=== PATIENT | female | born 1995 | race Caucasian/White ===

== ENCOUNTER 2022-05-05 08:26 | Outpatient (CLI) | payer OTHER, SELFPAY ==
[2022-05-05 10:12] LABS: Vitamin D 25 Hydroxy* 83 ng/mL (30-80)
[2022-05-05 10:30] LABS: Ferritin* 23.8 ng/mL (6.24-137.0)
[2022-05-05 10:45] LABS: Vitamin B12* 525 pg/mL (243-894)
== END 2022-05-05 08:27 | disposition home or self-care (01) ==
LOC: NFLDREF 08:26
PROVIDERS: PCP Family Medicine; Visit Provider Family Medicine
DX: E53.8 Deficiency of other specified B group vitamins (principal); R53.83 Other fatigue; E55.9 Vitamin D deficiency, unspecified
CPT/HCPCS: 82306; 82607; 82728

== ENCOUNTER 2022-10-01 12:15 | Emergency (ER) | payer OTHER, SELFPAY ==
[2022-10-01 12:24] VITALS: BP 106/59; PULSE 129; RESP 18; TEMP 36.8; O2SAT 96; BMI 27.4
--- NOTE | 2022-10-01 13:45 | ED.GENADULT ---
HPI - General Adult General Time Seen by Provider: 13:46 Date Seen: 10/01/22 Chief complaint: Nausea/Vomiting Stated complaint: vomiting Time Seen by Provider: 10/01/22 13:45 Source: patient and RN notes reviewed Mode of arrival: ambulatory Limitations: no limitations History of Present Illness HPI narrative: Rosi is a 27-year-old female coming in with nausea vomiting diarrhea. She awoke overnight with nausea vomiting and sharp abdominal pain. This happened around 2:00 a.m.. She drinks water bucket sharp stomach pain any time she attempts to. She started with diarrhea around 7:00 a.m. this morning, has had a few bouts. She has never had any abdominal surgery before, no bowel obstruction. She does have chronic GERD and does take omeprazole. She is currently menstruating. She has had a workup for abdominal pain at [place] before per report. She states they felt it was probably her GERD. She has not noted fevers per se but has felt hot and sweaty overnight. She had pizza in a bag salad last night, her brother had the same thing and he is not ill. No other known ill contacts, no travel. Related Data Home Medications Medication Instructions Recorded Confirmed cyanocobalamin (vitamin B-12) 500 500 mcg PO DAILY 03/24/22 07/09/22 mcg tablet melatonin 5 mg capsule 5 mg PO .Bedtime as needed PRN 03/24/22 07/09/22 omeprazole 20 mg capsule,delayed 20 mg PO .Daily as needed PRN 03/24/22 07/09/22 release cholecalciferol (vitamin D3) 125 5,000 unit PO DAILY 07/09/22 07/09/22 mcg (5,000 unit) tablet Previous Rx's Medication Instructions Recorded fluconazole 150 mg tablet 150 mg PO Q3D 2 doses #2 tabs 08/23/22 Allergies Allergy/AdvReac Type Severity Reaction Status Date / Time No Known Allergies Allergy Verified 10/01/22 14:18 Review of Systems Status of ROS: Reports: 10 or more systems reviewed and unremarkable except as noted in History and below [facility] Medical History Anxiety Gastroesophageal reflux disease Vitamin D deficiency (2018) Surgical History No history of previous surgery Family History Maternal Grandfather Diabetes Maternal Grandmother Heart disease Stroke Diabetes Paternal Grandfather Colon cancer Uncle Diabetes Other Family history of stroke Social History Narrative: Exercises regularly- 2 h walks with dog Thundra, also trail runs, weights Non-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, 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, 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, 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, no kids Smoking Status: Never smoker How often do you have a drink containing alcohol: monthly or less AUDIT-C Alcohol total score: 1 Non-prescribed substance use: denies use Little interest or pleasure in doing things: not at all Feeling down, depressed, or hopeless: several days service: No Exam Const: Vital Signs, click to edit/add: Vital Signs - 24 hr 10/01/22 12:24 10/01/22 14:01 10/01/22 15:50 Temperature 98.2 F Pulse Rate 109 H Pulse Rate [Right Pulse Oximeter] 129 H Respiratory Rate 18 Blood Pressure [Ri ght Upper Arm] 106/59 L Pulse Oximetry 96 99 100 Oxygen Delivery Me thod Room Air 10/01/22 15:56 Temperature Pulse Rate Pulse Rate [Right Pulse Oximeter] 111 H Respiratory Rate 20 Blood Pressure [Ri ght Upper Arm] 117/73 Pulse Oximetry 99 Oxygen Delivery Me thod Room Air Documenting provider has reviewed patient's vital signs: yes Common normals: no apparent distress, average body habitus, oriented x3, no limitations, healthy appearing and alert General appearance: cooperative, comfortable, well kempt and well developed HENMT: Common normals: normocephalic, head/scalp atraumatic, hearing grossly normal bilaterally, external nose normal and nasal mucous membranes and turbinates normal Head and scalp: normocephalic and atraumatic Nose: external nose normal and nasal mucous membranes and turbinates normal Other: Oral membranes without lesions but dry appearing. Eye: Common normals: PERRL, EOMs intact bilaterally, conjunctivae normal and no scleral icterus Conjunctiva: conjunctiva(e) normal Pupil: PERRL Neck & C-Spine: Common normals: full ROM, no lymphadenopathy, supple, no meningeal signs, no JVD and thyroid normal Thyroid: thyroid normal Resp: Common normals: normal respiratory effort, no retractions, no use of accessory muscles and clear to auscultation bilaterally Auscultation: clear to auscultation bilaterally Cardio: Common normals: no JVD, regular rhythm, S1 normal heart sound, S2 normal heart sound, no gallops, no clicks and no murmurs Rate: tachycardic Rhythm: regular rhythm Heart sounds: S1 normal and S2 normal GI: Common normals: Normal to inspection, nondistended, normoactive bowel sounds present, soft to palpation, non-tender, no hepatosplenomegaly and no masses Palpation: soft and no hepatosplenomegaly Neuro: Common normals: oriented x3 Sensorium/orientation: alert Meningeal signs: no meningeal signs Psych: Appearance: well kempt Course Course Hospital Course: Reviewed with Rosi that this likely represents a MEAGAN gastroenteritis type picture which would likely be viral. I do think we should test for COVID and influenza. Have reviewed with her that sometimes we see influenza B and historically some COVID has caused more GI symptoms in patient's. We will get basic lab work, do a flat and upright of her abdomen just to ensure no obstructive pathology. This would certainly let us know if there is any significant ileus as well. Otherwise, will initiate IV fluids, IV Zofran. Clinically on examination she has a nonsurgical abdomen. She has a completely benign nontender nondistended abdomen on my exam. Reevaluation(s) Reevaluation #1: Reviewed with patient that there is no concern of obstruction on her imaging. Labs are reassuring. Did review the mildly elevated white count but we certainly can see this even cases of viral gastroenteritis. She was feeling much better but the nausea starting to come back. We will dose her with IV Zofran prior to discharge in send her with a prescription for oral Zofran. Time: 16:19 Vital Signs Vital signs: Initial Vital Signs Temperature 98.2 F 10/01/22 12:24 Temperature Source Temporal Artery Scan 10/01/22 12:24 Pulse Rate 129 H 10/01/22 12:24 Respiratory Rate 18 10/01/22 12:24 Blood Pressure 106/59 L 10/01/22 12:24 Blood Pressure Mean 74 10/01/22 12:24 Blood Pressure Position Sitting 10/01/22 12:24 Pulse Oximetry 96 10/01/22 12:24 Oxygen Delivery Method 10/01/22 12:24 Vital Signs Temperature 98.2 F 10/01/22 12:24 Pulse Rate 129 H 10/01/22 12:24 Respiratory Rate 18 10/01/22 12:24 Blood Pressure 106/59 L 10/01/22 12:24 Pulse Oximetry 96 10/01/22 12:24 Oxygen Delivery Method 10/01/22 12:24 Temperature 98.2 F 10/01/22 12:24 Pulse Rate 111 H 10/01/22 15:56 Respiratory Rate 20 10/01/22 15:56 Blood Pressure 117/73 10/01/22 15:56 Pulse Oximetry 99 10/01/22 15:56 Oxygen Delivery Method 10/01/22 15:56 Medical Decision Making Lab Data Lab results reviewed: Yes I reviewed the patient's lab results Labs: Lab Results 10/01/22 10/01/22 10/01/22 Range/Units 14:25 14:25 14:25 WBC 14.99 H (4.50-11.00) K/uL RBC 5.13 (4.00-5.20) m/uL Hgb 14.4 (12.0-16.0) gm/dL Hct 42.9 (33.0-51.0) % MCV 84 (80-100) fL MCH 28 (26-34) pg MCHC 34 (32-36) gm/dL RDW Coeff of Tessa 12.3 (11.5-15.5) % Plt Count 213 (140-440) K/uL Neut % (Auto) 94.9 H (42.0-72.0) % Lymph % (Auto) 1.6 L (20-44) % [place] % (Auto) 2.5 (0.0-11.0) % Eos % (Auto) 0.0 (0.0-7.0) % Baso % (Auto) 0.1 (0.0-3.0) % Neut # (Auto) 14.20 H (1.7-7.0) K/uL Lymph # (Auto) 0.20 L (0.90-2.90) K/uL [place] # (Auto) 0.40 (0.00-0.90) K/UL Eos # (Auto) 0.00 (0.00-0.50) K/uL Baso # (Auto) 0.00 (0.00-0.30) K/uL Sodium 138 (135-149) mmol/L Potassium 5.0 (3.6-5.1) mmol/L Chloride 107 (96-114) mmol/L Carbon Dioxide 22 (20-32) mmol/L BUN 18 (5-24) mg/dL Creatinine 0.5 (0.5-1.5) mg/dL Estimated Creat Clear 158.22 Estimated GFR 132 ml/min Glucose 104 (60-115) mg/dL Lactate 1.5 (0.5-1.9) mmol/L Calcium 8.9 (8.4-10.6) mg/dL C-Reactive Protein 3.4 H (0.5-1.0) mg/dL SARS-CoV-2 (PCR) (Negative) Influenza Type A (PCR) (Negative) Influenza Type B (PCR) (Negative) 10/01/22 Range/Units 14:25 WBC (4.50-11.00) K/uL RBC (4.00-5.20) m/uL Hgb (12.0-16.0) gm/dL Hct (33.0-51.0) % MCV (80-100) fL MCH (26-34) pg MCHC (32-36) gm/dL RDW Coeff of Tessa (11.5-15.5) % Plt Count (140-440) K/uL Neut % (Auto) (42.0-72.0) % Lymph % (Auto) (20-44) % [place] % (Auto) (0.0-11.0) % Eos % (Auto) (0.0-7.0) % Baso % (Auto) (0.0-3.0) % Neut # (Auto) (1.7-7.0) K/uL Lymph # (Auto) (0.90-2.90) K/uL [place] # (Auto) (0.00-0.90) K/UL Eos # (Auto) (0.00-0.50) K/uL Baso # (Auto) (0.00-0.30) K/uL Sodium (135-149) mmol/L Potassium (3.6-5.1) mmol/L Chloride (96-114) mmol/L Carbon Dioxide (20-32) mmol/L BUN (5-24) mg/dL Creatinine (0.5-1.5) mg/dL Estimated Creat Clear Estimated GFR ml/min Glucose (60-115) mg/dL Lactate (0.5-1.9) mmol/L Calcium (8.4-10.6) mg/dL C-Reactive Protein (0.5-1.0) mg/dL SARS-CoV-2 (PCR) Negative SARS-CoV-2 (Negative) Influenza Type A (PCR) Negative PCR FLU A (Negative) Influenza Type B (PCR) Negative PCR FLU B (Negative) Imaging Data Abdominal x-ray: Attestation: I have reviewed the pertinent imaging results. My impression: No evidence of obstructive bowel pattern on my preliminary review of these films. Radiologist's impression: Patient: ROSI MARRERO Facility:?[facility] Patient ID:?[id number] Site Patient ID:?[id number]. Site :?[id number] Study:?XRay Abdomen/Pelvis FLAT AND UPRIGHT-10/01/2022 2:21:15 PM Ordering Physician:?Clarissa Hunter Final Report: INDICATION: Nausea, vomiting, diarrhea. TECHNIQUE: Abdomen 2 view(s) AP supine, upright. COMPARISON: Abdomen radiographs dated 08/01/2020. FINDINGS/IMPRESSION: Nonspecific, nonobstructive bowel gas pattern. Moderate fecal burden is present through the colon. Again noted is Nakia lobe versus hepatomegaly. No evidence of pneumoperitoneum. Visualized lung bases are grossly clear. No acute osseous abnormality. Dictated by Triston Hernandez MD @ 10/01/2022 3:01:24 PM (Electronic Signature) Critical Care Time Critical Care Time Critical Care Time: No Discharge Plan Discharge Clinical Impression: Gastroenteritis and colitis, viral Patient Disposition: Home, Self-Care Condition: Stable Instructions: Gastroenteritis (ED), Nutrition Tips for Relief of Diarrhea (ED) Additional Instructions: Use Zofran as prescribed to help allow you to get oral fluids in. Once you are improving, appetite for solids will return and improved. Take small sips of fluids every 5-10 minutes while awake until you are back to normal, this will help prevent dehydration. If you are unable to get in fluids despite the Zofran, are not improving within 24-48 hours or if you are worsening at any point, please seek re-evaluation. Activity Level: Activity as Tolerated Prescriptions: No Action cholecalciferol (vitamin D3) 125 mcg (5,000 unit) tablet 5,000 unit PO DAILY Rx Instructions: take 2 tab daily melatonin 5 mg capsule 5 mg PO .Bedtime as needed PRN omeprazole 20 mg capsule,delayed release(DR/EC) 20 mg PO .Daily as needed PRN cyanocobalamin (vitamin B-12) 500 mcg tablet 500 mcg PO DAILY fluconazole 150 mg tablet 150 mg PO Q3D Qty: 2 0RF Follow Up/Referrals: Kathryn Meadows MD [Primary Care Provider] - Stand Alone Forms: DataRPM Info Instructions
[2022-10-01 14:01] VITALS: O2SAT 99
--- NOTE | 2022-10-01 14:01 | CRLHL7_ITS ---
For Patients: As a result of the Century Cures Act, medical imaging exams and procedure reports are released immediately into your electronic medical record. You may view this report before your referring provider. If you have questions, please contact your health care provider. INDICATION: Nausea, vomiting, diarrhea. TECHNIQUE: Abdomen 2 view(s) AP supine, upright. COMPARISON: Abdomen radiographs dated 08/01/2020. FINDINGS/IMPRESSION: Nonspecific, nonobstructive bowel gas pattern. Moderate fecal burden is present through the colon. Again noted is Nakia lobe versus hepatomegaly. No evidence of pneumoperitoneum. Visualized lung bases are grossly clear. No acute osseous abnormality. Dictated by Triston Hernandez MD @ 10/01/2022 3:01:24 PM (Electronically Signed)
[2022-10-01] MEDS: 0.9 % SODIUM CHLORIDE 1000 ml 1,000 ML IV (14:36)
[2022-10-01] MEDS: ONDANSETRON 2 MG/ML inj 4 MG IVP ×2 (14:37→16:43)
[2022-10-01 14:41] LABS: Basophils Percent Auto 0.1 % (0.0-3.0); Hematocrit 42.9 % (33.0-51.0); Hemoglobin* 14.4 gm/dL (12.0-16.0); Immature Granulocytes Pct Auto 0.9 %; Lymphocytes Percent Auto 1.6 % (20-44); Mean Corpuscular HGB Conc 34 gm/dL (32-36); Mean Corpuscular Hemoglobin 28 pg (26-34); Mean Corpuscular Volume 84 fL (80-100); Monocytes Percent Auto 2.5 % (0.0-11.0); Neutrophils Percent Auto 94.9 % (42.0-72.0); Platelet Count* 213 K/uL (140-440); RDW Coefficient of Variation % 12.3 % (11.5-15.5); Red Blood Count 5.13 m/uL (4.00-5.20); White Blood Count* 14.99 K/uL (4.50-11.00)
[2022-10-01 14:45] LABS: Lactate* 1.5 mmol/L (0.5-1.9)
[2022-10-01 14:53] LABS: Slide Review Reflex No
[2022-10-01 15:06] LABS: Chloride* 107 mmol/L (96-114); Sodium* 138 mmol/L (135-149)
[2022-10-01 15:08] LABS: Creatinine* 0.5 mg/dL (0.5-1.5); Est. Creatinine Clearance* 158.22; Estimated Glomerular Filt Rate 132 ml/min
[2022-10-01 15:09] LABS: Blood Urea Nitrogen* 18 mg/dL (5-24); Carbon Dioxide* 22 mmol/L (20-32); Glucose* 104 mg/dL (60-115)
[2022-10-01 15:10] LABS: Calcium* 8.9 mg/dL (8.4-10.6)
[2022-10-01 15:12] LABS: C Reactive Protein* 3.4 mg/dL (0.5-1.0)
[2022-10-01 15:17] LABS: PCR FLU A Negative PCR FLU A (Negative); PCR FLU B Negative PCR FLU B (Negative)
[2022-10-01 15:19] LABS: SARS PCR* Negative SARS-CoV-2 (Negative)
[2022-10-01 15:50] VITALS: PULSE 109; O2SAT 100
[2022-10-01 15:56] VITALS: BP 117/73; PULSE 111; RESP 20; O2SAT 99
== END 2022-10-01 16:51 | disposition home or self-care (01) ==
PROVIDERS: Emergency Provider Family Medicine; PCP Family Medicine
DX: K52.9 Noninfective gastroenteritis and colitis, unspecified (principal)
CPT/HCPCS: 36415; 74019; 80048; 83605; 85025; 86140; 87631; 94761; 96374; 96375; 96376; 99284; J2405; J7030

== ENCOUNTER 2022-11-26 15:18 | Outpatient (CLI) | payer OTHER, SELFPAY | END 2022-11-26 15:19 | disposition home or self-care (01) | LOC: NFLDREF 11-29 06:29 | PROVIDERS: PCP Family Medicine; Referring Provider Family Medicine; Visit Provider Family Medicine | DX: R39.9 Unspecified symptoms and signs involving the genitourinary system (principal); N94.9 Unspecified condition associated with female genital organs and menstrual cycle; B37.31 Acute candidiasis of vulva and vagina; N39.0 Urinary tract infection, site not specified | CPT/HCPCS: 87086 ==

== ENCOUNTER 2023-07-01 10:14 | Outpatient (CLI) | payer OTHER, SELFPAY | END 2023-07-01 10:15 | disposition home or self-care (01) | PROVIDERS: PCP Family Medicine; Visit Provider Family Medicine | DX: R35.0 Frequency of micturition (principal); E55.9 Vitamin D deficiency, unspecified; E67.3 Hypervitaminosis D; E53.8 Deficiency of other specified B group vitamins; R53.83 Other fatigue; R79.0 Abnormal level of blood mineral | CPT/HCPCS: 82306; 84443; 86140 ==

== ENCOUNTER 2024-06-02 07:30 | Outpatient (RCR) | payer OTHER, SELFPAY | END 2024-09-27 15:58 | disposition home or self-care (01) | PROVIDERS: PCP Family Medicine; Visit Provider Family Medicine | DX: M25.561 Pain in right knee (principal); Z51.89 Encounter for other specified aftercare | CPT/HCPCS: 97110; 97161 ==

== ENCOUNTER 2024-10-03 13:06 | Outpatient (CLI) | payer OTHER, SELFPAY | END 2024-10-03 13:07 | disposition home or self-care (01) | LOC: NFLDREF 10-09 04:02 | PROVIDERS: PCP Family Medicine; Referring Provider Family Medicine; Visit Provider Family Medicine | DX: R35.0 Frequency of micturition (principal); B37.31 Acute candidiasis of vulva and vagina | CPT/HCPCS: 87086 ==

== ENCOUNTER 2024-11-07 10:03 | Outpatient (CLI) | payer OTHER, SELFPAY ==
[2024-11-07 14:09] LABS: Bacterial Vaginosis* Negative (Negative); Candida glab/krus DETECTED (No Detected); Candida species NOT DETECTED (No Detected); Trichomonas vaginalis NOT DETECTED (No Detected)
== END 2024-11-07 10:04 | disposition home or self-care (01) ==
LOC: LKVREF 10:04
PROVIDERS: PCP Family Medicine; Visit Provider Emergency Medicine
DX: N76.0 Acute vaginitis (principal); R10.2 Pelvic and perineal pain
CPT/HCPCS: 81513; 87086; 87481; 87661

== ENCOUNTER 2025-01-29 09:17 | Outpatient (RCR) | payer OTHER, SELFPAY | END 2025-05-15 14:45 | disposition home or self-care (01) | PROVIDERS: PCP Family Medicine; Visit Provider Family Medicine | DX: M25.562 Pain in left knee (principal); M25.561 Pain in right knee; Z51.89 Encounter for other specified aftercare | CPT/HCPCS: 97110; 97161 ==

== ENCOUNTER 2025-08-14 11:50 | Outpatient (CLI) | payer OTHER, SELFPAY | END 2025-08-14 11:51 | disposition home or self-care (01) | PROVIDERS: PCP Family Medicine; Visit Provider Family Medicine | DX: M79.10 Myalgia, unspecified site (principal); E55.9 Vitamin D deficiency, unspecified; Z83.49 Family history of other endocrine, nutritional and metabolic diseases | CPT/HCPCS: 82306; 82550; 84443; 86038; 86140 ==